=== PATIENT | male | born 1975 | race Caucasian/White ===

== ENCOUNTER 2021-04-19 10:50 | Inpatient (IN) ==
[2021-04-19] MEDS ORDERED: Isovue-370 500 ML BOTTLE IVP ONE (11:17)
[2021-04-19] MEDS ORDERED: 0.9 % Sodium Chloride 1,000 ML IVC ONE (11:17)
[2021-04-19 11:44] LABS: Basophils # 0.1 K/mcL (0.0-0.2); Basophils % 0.6 %; Hematocrit 52.9 % (37.5-50.1); Hemoglobin 16.6 g/dL (12.9-16.9); Immature Granulocytes % 1.6 % (0-4); Lymphocytes # 1.2 K/mcL (0.6-4.6); Lymphocytes % 10.2 %; Mean Corpuscular HGB Conc 31.4 g/dL (31.6-35.5); Mean Corpuscular Hemoglobin 27.8 pg (28.0-33.3); Mean Corpuscular Volume 88.6 fL (83.0-100.0); Mean Platelet Volume 11.6 fL (9.4-12.4); Monocytes # 0.4 K/mcL (0.0-1.3); Monocytes % 3.6 %; Neutrophils # 9.8 K/mcL (1.6-8.9); Platelet Count 186 K/mcL (140-400); Red Blood Count 5.97 M/mcL (4.19-5.50); Red Cell Distribution Width 13.6 % (11.5-14.5); White Blood Count 11.7 K/mcL (4.3-11.1)
[2021-04-19 11:54] LABS: VBG HCO3 6 mEq/L (21-27); VBG PCO2 32 mmHg (41-51); VBG PH 6.89 pH Units (7.32-7.42); VBG PO2 39 mmHg (25-50)
[2021-04-19] MEDS ORDERED: diazePAM 10 MG/2 ML SYRINGE IVP STA (12:22)
[2021-04-19 12:29] LABS: Alanine Aminotransferase 29 Units/L (7-52); Albumin 4.4 g/dL (3.5-5.7); Albumin/Globulin Ratio 1.1 (1.1-2.2); Alkaline Phosphatase 105 Units/L (34-104); Aspartate Amino Transferase 35 Units/L (13-39); BUN/Creatinine Ratio 14 (6-26); Bilirubin,Total 0.5 mg/dL (0.3-1.0); Blood Urea Nitrogen 24 mg/dL (6-20); Calcium 8.6 mg/dL (8.6-10.3); Carbon Dioxide 6 mEq/L (23-29); Chloride 88 mEq/L (98-107); Globulin 3.9 g/dL (2.4-3.5); Glucose 261 mg/dL (70-105); Osmolality,Calculated 271 (280-300); Potassium 5.2 mEq/L (3.5-5.1); Sodium 124 mEq/L (136-145); Total Protein 8.3 g/dL (6.4-8.9); Troponin I < 0.03 ng/mL (< 0.04); Uric Acid 9.7 mg/dL (2.3-7.6); eGFR For African Americans 53 (> 60); eGFR For Non-African Americans 44 (> 60)
[2021-04-19 15:27] LABS: Bacteria,Urine Few per hpf (None-Few); Bilirubin,Urine Negative (Negative); Blood,Urine Small (Negative); Clarity,Urine Clear (Clear); Color,Urine Colorless (Yellow); Glucose,Urine (UA) >=1000 mg/dL (Normal); Ketones,Urine >150 mg/dL (Negative); Leukocyte Esterase,Urine Negative (Negative); Mucus,Urine Few per lpf (None-Few); Nitrite,Urine Negative (Negative); PH,Urine 5.5 pH Units (5.0-8.0); Protein,Urine 70 mg/dL (Neg-Trace); RBC,Urine 0-3 per hpf (0-3); Specific Gravity,Urine 1.018 (1.010-1.025); Squamous Epithelial Cell,Urine Few per hpf (None-Few); Urobilinogen,Urine Normal (Normal); WBC,Urine 0-3 per hpf (0-3)
[2021-04-19] MEDS: 0.9 % Sodium Chloride 1,000 ML IVC SCH ×2 (15:38→15:51)
[2021-04-19] MEDS ORDERED: D5% in 0.45% NACL 1,000 ML IVC SCH (16:15)
[2021-04-19] MEDS ORDERED: 0.9 % Sodium Chloride 1,000 ML IVC SCH (17:00)
[2021-04-19] MEDS ORDERED: D5% in 0.45% NACL 1,000 ML IVC PRN (18:20)
[2021-04-19] MEDS ORDERED: *HR* Dextrose 50 % in Water (Syg) 50 ML SYRINGE IVP PRN ×2 (18:20→23:49)
[2021-04-19] MEDS ORDERED: Insulin Regular, Human 100 UNIT/ML IV PRN ×2 (18:20→19:58)
[2021-04-19 18:49] LABS: BUN/Creatinine Ratio 18 (6-26); Blood Urea Nitrogen 26 mg/dL (6-20); Calcium 7.7 mg/dL (8.6-10.3); Carbon Dioxide 4 mEq/L (23-29); Chloride 100 mEq/L (98-107); Glucose 274 mg/dL (70-105); Osmolality,Calculated 287 (280-300); Potassium 5.1 mEq/L (3.5-5.1); Sodium 131 mEq/L (136-145); eGFR For African Americans > 60 (> 60); eGFR For Non-African Americans 52 (> 60)
[2021-04-19] MEDS ORDERED: D5% in 0.45% NACL w KCl 20 MEQ/1,000 ML MLS IVC PRN (19:58)
[2021-04-19] MEDS ORDERED: 0.45 % Sodium Chloride w/KCl 20 MEQ/1,000 ML MLS IVC SCH ×2 (20:00)
[2021-04-19] MEDS ORDERED: 0.9 % Sodium Chloride w KCl 20 MEQ/1,000 ML MLS IVC SCH ×2 (23:45)
[2021-04-20 00:06] LABS: Acetaminophen < 10 mcg/mL (10-20); BUN/Creatinine Ratio 18 (6-26); Blood Urea Nitrogen 27 mg/dL (6-20); Calcium 7.9 mg/dL (8.6-10.3); Carbon Dioxide 5 mEq/L (23-29); Chloride 105 mEq/L (98-107); Glucose 205 mg/dL (70-105); Osmolality,Calculated 293 (280-300); Potassium 4.7 mEq/L (3.5-5.1); Salicylate < 2.5 mg/dL (15.0-30.0); Sodium 136 mEq/L (136-145); eGFR For African Americans > 60 (> 60); eGFR For Non-African Americans 52 (> 60)
[2021-04-20 02:49] LABS: Estimated Average Glucose 375 mg/dl; Hemoglobin A1C 14.7 %
[2021-04-20 03:24] LABS: BUN/Creatinine Ratio 19 (6-26); Blood Urea Nitrogen 28 mg/dL (6-20); Calcium 7.5 mg/dL (8.6-10.3); Carbon Dioxide 5 mEq/L (23-29); Chloride 110 mEq/L (98-107); Glucose 160 mg/dL (70-105); Magnesium 2.2 mg/dL (1.6-2.6); Osmolality,Calculated 293 (280-300); Potassium 4.5 mEq/L (3.5-5.1); Sodium 137 mEq/L (136-145); eGFR For African Americans > 60 (> 60); eGFR For Non-African Americans 52 (> 60)
[2021-04-20 04:52] LABS: ABG Base Excess -27 mEq/L (-2 to 3); ABG HCO3 4 mEq/L (21-27); ABG Oxygen Saturation 72 % (95-98); ABG PCO2 18 mmHg (35-45); ABG PH 6.96 pH Units (7.32-7.45); ABG PO2 58 mmHg (85-104); ABG TCO2 < 5 mEq/L (20-26)
[2021-04-20] MEDS ORDERED: SODIUM BICARBONATE IVC SCH ×3 (05:00→10:58)
[2021-04-20] MEDS ORDERED: Sodium Bicarbonate 75 MEQ in 0.45 % Sodium Chloride 1,000 ML IVC SCH (05:00)
[2021-04-20] MEDS ORDERED: POTASSIUM CHLORIDE IVC SCH (05:00)
[2021-04-20] MEDS ORDERED: SODIUM CHLORIDE 0.45% IVC SCH (05:00)
[2021-04-20] MEDS: Insulin Human Regular 250 UNIT in 0.9 % Sodium Chloride 250 ML IVC SCH ×2 (05:02→13:10)
[2021-04-20] MEDS: *HR* Enoxaparin 40 MG/0.4 ML SYRINGE SQ SCH (05:02)
[2021-04-20] MEDS ORDERED: [UNRECOGNIZED DRUG - OTHER] IVC SCH (07:00)
[2021-04-20] MEDS ORDERED: DEXTROSE 50% IVC SCH ×2 (07:00→10:58)
[2021-04-20] MEDS ORDERED: WATER IVC SCH ×2 (07:00→10:58)
[2021-04-20 07:14] LABS: BUN/Creatinine Ratio 19 (6-26); Blood Urea Nitrogen 28 mg/dL (6-20); Calcium 7.7 mg/dL (8.6-10.3); Carbon Dioxide 6 mEq/L (23-29); Chloride 114 mEq/L (98-107); Glucose 149 mg/dL (70-105); Osmolality,Calculated 294 (280-300); Potassium 4.3 mEq/L (3.5-5.1); Sodium 138 mEq/L (136-145); eGFR For African Americans > 60 (> 60); eGFR For Non-African Americans 51 (> 60)
[2021-04-20] MEDS: lisinopriL 20 MG TABLET PO SCH (08:12)
[2021-04-20 09:17] LABS: BUN/Creatinine Ratio 19 (6-26); Blood Urea Nitrogen 28 mg/dL (6-20); Calcium 7.8 mg/dL (8.6-10.3); Carbon Dioxide 7 mEq/L (23-29); Chloride 113 mEq/L (98-107); Glucose 132 mg/dL (70-105); Osmolality,Calculated 289 (280-300); Potassium 4.2 mEq/L (3.5-5.1); Sodium 136 mEq/L (136-145); eGFR For African Americans > 60 (> 60); eGFR For Non-African Americans 53 (> 60)
[2021-04-20 10:38] LABS: ABG PCO2 < 13 mmHg (35-45); ABG PH 7.01 pH Units (7.32-7.45); ABG PO2 96 mmHg (85-104)
[2021-04-20 10:39] LABS: ABG PCO2 < 13 mmHg (35-45); ABG PH 6.97 pH Units (7.32-7.45); ABG PO2 96 mmHg (85-104)
[2021-04-20 10:39] LABS: ABG PCO2 < 13 mmHg (35-45); ABG PH 6.98 pH Units (7.32-7.45); ABG PO2 81 mmHg (85-104)
[2021-04-20] MEDS ORDERED: [UNRECOGNIZED DRUG - OTHER] IVC SCH (10:58)
[2021-04-20 11:50] LABS: BUN/Creatinine Ratio 19 (6-26); Blood Urea Nitrogen 27 mg/dL (6-20); Carbon Dioxide 11 mEq/L (23-29); Chloride 115 mEq/L (98-107); Glucose 112 mg/dL (70-105); Osmolality,Calculated 294 (280-300); Potassium 3.6 mEq/L (3.5-5.1); Sodium 139 mEq/L (136-145); eGFR For African Americans > 60 (> 60); eGFR For Non-African Americans 53 (> 60)
[2021-04-20 11:55] LABS: ABG Base Excess -13 mEq/L (-2 to 3); ABG HCO3 14 mEq/L (21-27); ABG Oxygen Saturation 77 % (95-98); ABG PCO2 36 mmHg (35-45); ABG PH 7.21 pH Units (7.32-7.45); ABG PO2 50 mmHg (85-104); ABG TCO2 15 mEq/L (20-26)
[2021-04-20 12:55] LABS: BUN/Creatinine Ratio 19 (6-26); Blood Urea Nitrogen 26 mg/dL (6-20); Calcium 7.7 mg/dL (8.6-10.3); Carbon Dioxide 13 mEq/L (23-29); Chloride 115 mEq/L (98-107); Glucose 83 mg/dL (70-105); Osmolality,Calculated 292 (280-300); Potassium 3.7 mEq/L (3.5-5.1); Sodium 139 mEq/L (136-145); eGFR For African Americans > 60 (> 60); eGFR For Non-African Americans 56 (> 60)
[2021-04-20] MEDS: *HR* Dextrose 50 % in Water (Syg) 50 ML SYRINGE IVP PRN (13:20)
[2021-04-20 15:10] LABS: BUN/Creatinine Ratio 18 (6-26); Blood Urea Nitrogen 24 mg/dL (6-20); Calcium 7.6 mg/dL (8.6-10.3); Carbon Dioxide 10 mEq/L (23-29); Chloride 114 mEq/L (98-107); Glucose 84 mg/dL (70-105); Osmolality,Calculated 289 (280-300); Potassium 3.7 mEq/L (3.5-5.1); Sodium 138 mEq/L (136-145); eGFR For African Americans > 60 (> 60); eGFR For Non-African Americans 57 (> 60)
[2021-04-20] MEDS: Insulin LISPRO 300 UNITS/3 ML VIAL SUBQ SCH (17:28)
[2021-04-20 18:26] LABS: BUN/Creatinine Ratio 16 (6-26); Blood Urea Nitrogen 22 mg/dL (6-20); Calcium 7.8 mg/dL (8.6-10.3); Carbon Dioxide 16 mEq/L (23-29); Chloride 109 mEq/L (98-107); Glucose 186 mg/dL (70-105); Osmolality,Calculated 294 (280-300); Potassium 3.3 mEq/L (3.5-5.1); Sodium 138 mEq/L (136-145); eGFR For African Americans > 60 (> 60); eGFR For Non-African Americans 58 (> 60)
[2021-04-20 19:03] LABS: Adenovirus Not Detected (Not Detect); Coronavirus 229E Not Detected (Not Detect); Coronavirus HKU1 Not Detected (Not Detect); Coronavirus NL63 Not Detected (Not Detect); Coronavirus OC43 Not Detected (Not Detect)
[2021-04-20 19:04] LABS: Bordetella Pertussis Not Detected (Not Detect); Chlamydophila pneumoniae Not Detected (Not Detect); Human Metapneumovirus Not Detected (Not Detect); Human Rhinovirus/Enterovirus Not Detected (Not Detect); Influenza A Subtype 2009 H1 Not Detected (Not Detect); Influenza B Not Detected (Not Detect); Mycoplasma pneumoniae Not Detected (Not Detect); Parainfluenza Virus 1 Not Detected (Not Detect); Parainfluenza Virus 2 Not Detected (Not Detect); Parainfluenza Virus 3 Not Detected (Not Detect); Parainfluenza Virus 4 Not Detected (Not Detect); Respiratory Syncytial Virus Not Detected (Not Detect); SARS-CoV-2 DETECTED (Not Detect)
[2021-04-20] MEDS ORDERED: Remdesivir 200 MG in 0.9 % Sodium Chloride 100 ML IVPB ONE (20:00)
[2021-04-20] MEDS ORDERED: NON-FORMULARY MEDICATION 1 EACH EACH (Omega-3/Dha/Epa/Fish Oil [Fish Oil 1,000 Mg Softgel] PO SCH (21:00)
[2021-04-20] MEDS: Insulin DETEMIR 100 UNIT/ML X5UNITS SUBQ SCH (21:13)
[2021-04-20 21:21] LABS: BUN/Creatinine Ratio 15 (6-26); Blood Urea Nitrogen 20 mg/dL (6-20); Calcium 7.8 mg/dL (8.6-10.3); Carbon Dioxide 16 mEq/L (23-29); Chloride 108 mEq/L (98-107); Glucose 168 mg/dL (70-105); Osmolality,Calculated 288 (280-300); Potassium 3.6 mEq/L (3.5-5.1); Sodium 136 mEq/L (136-145); eGFR For African Americans > 60 (> 60); eGFR For Non-African Americans 60 (> 60)
[2021-04-20 22:08] LABS: Bilirubin,Urine Negative (Negative); Blood,Urine Small (Negative); Clarity,Urine Clear (Clear); Color,Urine Light-Yellow (Yellow); Glucose,Urine (UA) >=1000 mg/dL (Normal); Ketones,Urine 20 mg/dL (Negative); Leukocyte Esterase,Urine Negative (Negative); Mucus,Urine Few per lpf (None-Few); Nitrite,Urine Negative (Negative); Protein,Urine 50 mg/dL (Neg-Trace); Specific Gravity,Urine 1.022 (1.010-1.025); Squamous Epithelial Cell,Urine Few per hpf (None-Few); Urobilinogen,Urine Normal (Normal); WBC,Urine 0-3 per hpf (0-3)
[2021-04-21 04:30] LABS: VBG HCO3 18 mEq/L (21-27); VBG PCO2 38 mmHg (41-51); VBG PO2 37 mmHg (25-50)
[2021-04-21 04:54] LABS: BUN/Creatinine Ratio 12 (6-26); Blood Urea Nitrogen 17 mg/dL (6-20); Calcium 7.8 mg/dL (8.6-10.3); Carbon Dioxide 19 mEq/L (23-29); Chloride 106 mEq/L (98-107); Glucose 117 mg/dL (70-105); Osmolality,Calculated 281 (280-300); Osmolality,Calculated 283 (280-300); Potassium 3.7 mEq/L (3.5-5.1); Sodium 134 mEq/L (136-145); Sodium 135 mEq/L (136-145); eGFR For African Americans > 60 (> 60); eGFR For Non-African Americans 53 (> 60)
[2021-04-21 04:55] LABS: Albumin 3.3 g/dL (3.5-5.7); Albumin/Globulin Ratio 1.1 (1.1-2.2); Bilirubin,Direct 0.1 mg/dL (0.0-0.2); Bilirubin,Indirect 0.3 mg/dL (0.0-1.0); Bilirubin,Total 0.4 mg/dL (0.3-1.0); Globulin 2.9 g/dL (2.4-3.5); Total Protein 6.2 g/dL (6.4-8.9)
[2021-04-21] MEDS: *HR* Enoxaparin 40 MG/0.4 ML SYRINGE SQ SCH (05:55)
[2021-04-21] MEDS: Insulin LISPRO 300 UNITS/3 ML VIAL SUBQ SCH ×3 (08:04→16:59)
[2021-04-21] MEDS: lisinopriL 20 MG TABLET PO SCH (08:05)
[2021-04-21] MEDS ORDERED: *HR* LORazepam 0.5 MG TABLET PO PRN (08:47)
[2021-04-21] MEDS: *HR* Dextrose 50 % in Water (Syg) 50 ML SYRINGE IVP PRN (12:19)
[2021-04-21] MEDS ORDERED: Remdesivir 100 MG in 0.9 % Sodium Chloride 100 ML IVPB SCH (19:00)
[2021-04-21] MEDS: Acetaminophen 325 MG TABLET PO PRN (21:29)
[2021-04-21] MEDS: Insulin DETEMIR 100 UNIT/ML X5UNITS SUBQ SCH (21:31)
[2021-04-22 03:17] LABS: BUN/Creatinine Ratio 15 (6-26); Blood Urea Nitrogen 21 mg/dL (6-20); Calcium 7.9 mg/dL (8.6-10.3); Carbon Dioxide 21 mEq/L (23-29); Chloride 108 mEq/L (98-107); Glucose 176 mg/dL (70-105); Osmolality,Calculated 291 (280-300); Potassium 3.3 mEq/L (3.5-5.1); Sodium 137 mEq/L (136-145); eGFR For African Americans > 60 (> 60); eGFR For Non-African Americans 56 (> 60)
[2021-04-22 03:27] LABS: Albumin/Globulin Ratio 1.1 (1.1-2.2); Bilirubin,Direct 0.1 mg/dL (0.0-0.2); Bilirubin,Indirect 0.4 mg/dL (0.0-1.0); Bilirubin,Total 0.5 mg/dL (0.3-1.0); Globulin 2.8 g/dL (2.4-3.5); Total Protein 5.8 g/dL (6.4-8.9)
[2021-04-22] MEDS: *HR* Enoxaparin 40 MG/0.4 ML SYRINGE SQ SCH (05:03)
[2021-04-22 06:17] LABS: Basophils % 0.1 %; Hematocrit 39.7 % (37.5-50.1); Hemoglobin 13.6 g/dL (12.9-16.9); Immature Granulocytes % 1.2 % (0-4); Immature Platelets 5.4 % (1.1-6.1); Lymphocytes # 1.4 K/mcL (0.6-4.6); Lymphocytes % 18.3 %; Mean Corpuscular HGB Conc 34.3 g/dL (31.6-35.5); Mean Corpuscular Hemoglobin 28.2 pg (28.0-33.3); Mean Corpuscular Volume 82.2 fL (83.0-100.0); Monocytes # 0.5 K/mcL (0.0-1.3); Monocytes % 6.1 %; Neutrophils # 5.5 K/mcL (1.6-8.9); Platelet Count 151 K/mcL (140-400); Red Blood Count 4.83 M/mcL (4.19-5.50); Red Cell Distribution Width 14.1 % (11.5-14.5); Segmented Neutrophils % 74.3 %; White Blood Count 7.4 K/mcL (4.3-11.1)
[2021-04-22] MEDS ORDERED: Potassium Chloride Elixir 20 MEQ/15 ML UDC PO ONE (07:49)
[2021-04-22] MEDS: lisinopriL 20 MG TABLET PO SCH (09:00)
[2021-04-22] MEDS: Insulin LISPRO 300 UNITS/3 ML VIAL SUBQ SCH ×3 (09:08→16:50)
[2021-04-22] MEDS: Insulin DETEMIR 100 UNIT/ML X5UNITS SUBQ SCH (21:41)
[2021-04-23] MEDS: Acetaminophen 325 MG TABLET PO PRN (01:25)
[2021-04-23] MEDS: *HR* Enoxaparin 40 MG/0.4 ML SYRINGE SQ SCH (05:27)
[2021-04-23 08:00] VITALS: BP 128/81; PULSE 100; TEMP 98.6; O2SAT 95
[2021-04-23 08:37] LABS: Hematocrit 40.6 % (37.5-50.1); Hemoglobin 13.8 g/dL (12.9-16.9); Mean Corpuscular Hemoglobin 28.2 pg (28.0-33.3); Mean Platelet Volume 10.3 fL (9.4-12.4); Platelet Count 166 K/mcL (140-400); Red Blood Count 4.89 M/mcL (4.19-5.50); Red Cell Distribution Width 14.4 % (11.5-14.5); White Blood Count 8.9 K/mcL (4.3-11.1)
[2021-04-23 08:59] LABS: Alanine Aminotransferase 19 Units/L (7-52); Albumin 3.2 g/dL (3.5-5.7); Albumin/Globulin Ratio 1.2 (1.1-2.2); Alkaline Phosphatase 88 Units/L (34-104); Aspartate Amino Transferase 28 Units/L (13-39); BUN/Creatinine Ratio 17 (6-26); Bilirubin,Direct 0.2 mg/dL (0.0-0.2); Bilirubin,Indirect 0.3 mg/dL (0.0-1.0); Bilirubin,Total 0.5 mg/dL (0.3-1.0); Blood Urea Nitrogen 19 mg/dL (6-20); Calcium 8.3 mg/dL (8.6-10.3); Carbon Dioxide 22 mEq/L (23-29); Chloride 109 mEq/L (98-107); Globulin 2.7 g/dL (2.4-3.5); Glucose 58 mg/dL (70-105); Osmolality,Calculated 290 (280-300); Phosphorous 1.7 mg/dL (2.7-4.5); Potassium 3.2 mEq/L (3.5-5.1); Sodium 140 mEq/L (136-145); Total Protein 5.9 g/dL (6.4-8.9); eGFR For African Americans > 60 (> 60); eGFR For Non-African Americans > 60 (> 60)
[2021-04-23] MEDS: Insulin LISPRO 300 UNITS/3 ML VIAL SUBQ SCH (09:11)
[2021-04-23] MEDS: lisinopriL 20 MG TABLET PO SCH (09:15)
== END 2021-04-23 10:50 | disposition home or self-care (01) | DRG 177 ==
LOC: EMEROOARM 10:50 → 2NNU 10:50 → 2ANU 04-21 20:19
PROVIDERS: ADMIT Internal Medicine; ATTEND Internal Medicine